=== PATIENT | male | born 1970 | race Caucasian/White ===

== ENCOUNTER → 2025-02-25 13:29 | Outpatient (REF) | payer OTHER, SELFPAY | LOC: HWEVLT 13:29 | PROVIDERS: ATTENDING PHYSICIAN Radiology Vascular & Interventional Radiology | DX: I83.893 Varicose veins of bilateral lower extremities with other complications (principal) | CPT/HCPCS: 93970 ==

== ENCOUNTER → 2025-11-05 11:23 | Outpatient (REF) | payer OTHER, SELFPAY | LOC: RCS 11:23 | PROVIDERS: ATTENDING PHYSICIAN Internal Medicine Cardiovascular Disease; FAMILY PHYSICIAN Family Medicine | DX: I77.89 Other specified disorders of arteries and arterioles (principal) | CPT/HCPCS: 93306 ==